=== PATIENT | female | born 2000 | race Caucasian/White ===

== ENCOUNTER 2020-01-05 21:23 | Emergency (ER) | payer OTHER ==
[~2020-01-05] VITALS: Ht 162.6 cm; Wt 86.4 kg
[2020-01-05 21:30] VITALS: BP 115/75
[2020-01-05] MEDS ORDERED: HYDROcodone/APAP 5/325 TABLET ONE (21:54)
[2020-01-05] MEDS ORDERED: SILVER SULF. CRM 1% , 25GM ONE (21:54)
[2020-01-05] MEDS ORDERED: ONDANSETRON ODT 4 MG ONE (21:54)
[2020-01-05] MEDS: ONDANSETRON ODT 4 MG PO ONE ×2 (21:55→21:59)
[2020-01-05] MEDS: HYDROcodone/APAP 5/325 TABLET PO ONE ×2 (21:56→21:59)
[2020-01-05] MEDS ORDERED: SILVER SULF. CRM 1% , 25GM TP ONE (22:00)
--- NOTE | 2020-01-05 22:00 | NUR ---
Attempted to medicate patient for pain and nausea; patient refused.
== END 2020-01-05 22:15 | disposition home or self-care (01) ==
LOC: ED 22:11
DX: T22.5 Corrosion of first degree of shoulder and upper limb, except wrist and hand (principal); T23.521A Corrosion of first degree of single right finger (nail) except thumb, initial encounter; T23.501A Corrosion of first degree of right hand, unspecified site, initial encounter; T32.0 Corrosions involving less than 10% of body surface; X10.2XXA Contact with fats and cooking oils, initial encounter; Y93.89 Activity, other specified; Y92.69 Other specified industrial and construction area as the place of occurrence of the external cause; Y99.0 Civilian activity done for income or pay
CPT/HCPCS: 16020; 99283; Q0162

== ENCOUNTER 2020-01-24 11:47 | Emergency (ER) | payer OTHER ==
[~2020-01-24] VITALS: Ht 162.6 cm; Wt 85.5 kg
[2020-01-24 12:19] VITALS: BP 115/70
== END 2020-01-24 12:30 | disposition home or self-care (01) ==
LOC: ED 12:00
DX: T20.10XD Burn of first degree of head, face, and neck, unspecified site, subsequent encounter (principal); T31.0 Burns involving less than 10% of body surface; X58.XXXD Exposure to other specified factors, subsequent encounter
CPT/HCPCS: 99281